=== PATIENT | female | born 1985 | race Caucasian/White ===

== ENCOUNTER 2016-11-28 14:27 | Emergency (ER) | payer OTHER ==
[~2016-11-28] VITALS: Ht 162.6 cm; Wt 81.6 kg
--- NOTE | ~2016-11-28 | CT4 ---
[facility] A Service of [facility] RADIOLOGY TEXT RESULTS PATIENT: JUAN RAMON ROJAS LOCATION: [facility] : [birth year] UNIT #: [id number] AGE: [address]: José Miguel Cook DO SEX: F ORDER DR: [id number] [facility] [address] [place], [place] [address] [id number] E MR#: [id number] #: [id number] NAME: JUAN RAMON ROJAS : 1985 SEX: F STUDY DATE/TIME: 11/28/2016 16:45 UNIT: [facility] ROOM: STUDY DESCRIPTION: CT Abd and Pelv Wo Cont Attending Physician: José Miguel Cook D.O. Ordering Physician: José Miguel Cook D.O. Primary Care Physician: No Primary Care Physician MEDICAL IMAGING REPORT This report is preliminary unless electronic signature is present EXAM CT abdomen and pelvis without contrast HISTORY Left side abdomen pain, nausea for few days. TECHNIQUE CT abdomen and pelvis performed without administration of oral or intravenous contrast. COMPARISON No prior studies for comparison. FINDINGS There are some patchy densities at the bilateral lung bases, probably atelectatic in nature, but components of mild pneumonitis not excluded. No dense airspace disease. The heart is normal in size. The liver shows a somewhat elongated right hepatic lobe measuring approximately 22.6 cm in craniocaudal extent. No focal hepatic parenchymal abnormality is seen. Spleen, pancreas, adrenal glands, and kidneys unremarkable. CT PELVIS: No inguinal adenopathy. Urinary bladder and uterus unremarkable. The left adnexal/ovarian cyst measuring 3.1 cm x 3.6 cm. There is a trace amount of free fluid in the pelvis. Not a drainable fluid collection and likely physiologic in nature. There is no pelvic or retroperitoneal adenopathy. There are some small retroperitoneal nodes present. The distal esophagus, stomach, small bowel and appendix are normal. Colon unremarkable. Unopacified vascular structures unremarkable. The bony structures show no acute abnormality. IMPRESSION 1. Left adnexal/ovarian cyst measuring up to 3.6 cm in diameter. Probably a dominant follicle for this menstrual cycle. Consider STS. [facility] A Service of [facility] RADIOLOGY TEXT RESULTS PATIENT: JUAN RAMON ROJAS [id number] : [birth year] UNIT #: [id number] AGE: [address]: José Miguel Cook DO SEX: F ORDER DR: 6-week ultrasound followup to confirm resolution. 2. There is a minimal amount of free fluid in the pelvis, likely physiologic in nature. Not a drainable fluid collection. 3. Pancreas, kidneys, and appendix normal. Remainder of alimentary canal unremarkable. 4. Post cholecystectomy. 5. Patchy and linear/band-like densities at the bilateral lung bases, probably atelectatic in nature but somewhat prominent. Correlate with any clinical concern for mild basilar pneumonitis. Dictated by... Ezra Bardales M.D. THIS IS AN ELECTRONICALLY VERIFIED REPORT Ezra Bardales M.D. at 11/29/2016 1:21 PM MOLLY/elizabeth TD: 11/28/2016 18:48 JOB #: [id number] MEDICAL IMAGING REPORT Page 1 of 1 COPY
--- NOTE | ~2016-11-28 | CR72 ---
[facility] A Service of [facility] RADIOLOGY TEXT RESULTS PATIENT: JUAN RAMON ROJAS LOCATION: [facility] : 81 UNIT #: [id number] AGE: [address]: José Miguel Cook DO SEX: F ORDER DR: [id number] [facility] [address] [place], [place] [address] [id number] E MR#: [id number] #: [id number] NAME: JUAN RAMON ROJAS : 1985 SEX: F STUDY DATE/TIME: 11/28/2016 19:26 UNIT: [facility] ROOM: STUDY DESCRIPTION: CR Chest Single View Portable Attending Physician: José Miguel Cook D.O. Ordering Physician: José Miguel Cook D.O. Primary Care Physician: Primary Care Physician No MEDICAL IMAGING REPORT This report is preliminary unless electronic signature is present EXAM Portable chest 11/28/2016 1926 hours CLINICAL HISTORY Right-sided rib and abdominal pain, back pain for 3 days. No reported injury. COMPARISON 06/17/2010 FINDINGS Single portable upright view of the chest demonstrates normal cardiac, mediastinal and hilar contours. Lung volumes are slightly low. There is horizontal linear density at the lateral left lung base, likely atelectasis or scar. The right lung is clear. There is no pleural effusion, pneumothorax or rib fracture. No free air seen in the abdomen. IMPRESSION Minimal linear atelectasis or scar at the lateral left lung base. The right lung is clear. There is no pleural effusion, pneumothorax, rib fracture or free air in the abdomen. Dictated by... Anaya Brennan M.D. THIS IS AN ELECTRONICALLY VERIFIED REPORT Anaya Brennan M.D. at 11/28/2016 9:02 PM FABIANOM/amina TD: 11/28/2016 20:07 JOB #: [id number] [facility] A Service of [facility] RADIOLOGY TEXT RESULTS PATIENT: JUAN RAMON ROJAS [facility] #: [id number] : [birth year] UNIT #: [id number] AGE: [address]: José Miguel Cook DO SEX: F ORDER DR: MEDICAL IMAGING REPORT Page 1 of 1 COPY
[~2016-11-28 14:27] MED LIST: BACTRIM 400-801 TA1 PO; DELSYM30 MG/5 M1 PO; NO MEDICATIONS; ORUDIS75 M1 PO; PEN-VEE K PO; PYRIDIUM100 MG PO; ULTRAM PO; VITAMIN B12-FO1 EACH PO; ZITHROMAX1 G/PKT PO
[2016-11-28 15:00] LABS: URINE SOURCE CLEAN CATCH
[2016-11-28 15:07] LABS: URINE APPEARANCE SL CLOUDY; URINE BILIRUBIN NEG (NEG); URINE BLOOD 2+ (NEG); URINE COLOR YELLOW; URINE GLUCOSE NORM (NORM); URINE KETONE NEG (NEG); URINE LEUKOCYTE ESTERASE 3+ (NEG); URINE NITRATE POS (NEG); URINE PROTEIN 1+ (NEG); URINE UROBILINOGEN NORM (NORM)
[2016-11-28 15:28] LABS: CULTURE INDICATED? YES; URBCS1 AUWI 0-2 /[HPF] (0-2); URINE BACTERIA AUWI 2+ (NEGATIVE); URINE SQUAMOUS EPITHELIAL CELL FEW /[HPF]; UWBCS1 AUWI 25-50 (0-5)
[2016-11-28 16:00] LABS: BASOPHIL# 0.1 X10e3 (0-0.3); BASOPHIL% 0.8 % (0-2.5); DIFF IND NO; EOSINOPHIL# 0.1 X10e3 (0-0.7); EOSINOPHIL% 1.6 % (0.0-7.0); HEMATOCRIT 39.1 % (35.0-45.0); HEMOGLOBIN 13.7 gm/dL (12.0-16.0); LYMPHOCYTE# 2.7 X10e3 (1.0-3.5); LYMPHOCYTE% 30.7 % (17.0-45.0); MEAN CELL VOLUME 83.5 FL (83-96); MEAN CORPUSCULAR HEMOGLOBIN 29.3 PG (28-34); MEAN PLATELET VOLUME 7.5 FL (6.5-11.5); MONOCYTE% 11.4 % (3.0-12.0); NEUTROPHIL# 4.9 X10e3 (1.5-7.1); NEUTROPHIL% 55.5 % (40-75); PLATELET COUNT 215 X10e3 (140-420); RED BLOOD COUNT 4.68 X10e (3.90-5.30); RED CELL DISTRIBUTION WIDTH 13.8 % (11.0-15.5); WHITE BLOOD COUNT 8.9 X10e3 (4.0-10.5)
[2016-11-28 16:24] LABS: BILIRUBIN, DIRECT 0.2 mg/dL (0.0-0.2); BILIRUBIN,INDIRECT 0.7 mg/dL (0.0-0.9); BILIRUBIN,TOTAL 0.9 mg/dL (0.2-2.0); CALCIUM SERUM 8.8 mg/dL (8.4-10.2); CREATININE SERUM 0.5 mg/dL (0.6-1.4); GLOM FILT RATE Estimated 127.2 mL/min (>60); POTASSIUM 3.1 mmol/L (3.5-5.1); PROTEIN TOTAL SERUM 8.1 g/dL (6.0-8.3)
== END 2016-11-28 20:25 | disposition home or self-care (01) ==
LOC: CED 14:27
DX: N83.202 Unspecified ovarian cyst, left side (principal); K21.9 Gastro-esophageal reflux disease without esophagitis; Z98.890 Other specified postprocedural states
CPT/HCPCS: 36415; 71010; 74176; 80048; 80076; 81003; 83690; 84703; 85025; 87086; 87088; 87186; 96365; 96375; 99284; J0696; J1885; J2405